=== PATIENT | male | born 1965 | race Caucasian/White ===

== ENCOUNTER → 2020-05-13 | Outpatient (CLI) | payer BC ==
[~2020-05-13] MED LIST: PRIL20TA2 PO
== END ==
LOC: M LABSMTC 12:00
PROVIDERS: ATTEND Anesthesiology
DX: Z11.59 Encounter for screening for other viral diseases (principal)
CPT/HCPCS: C9803; U0003

== ENCOUNTER 2020-05-16 06:35 | Day surgery (SDC) | payer BC ==
[~2020-05-16] VITALS: Ht 170.2 cm; Wt 79.7 kg
[~2020-05-16 06:35] MED LIST changes: +LIDOCAINE 1% MDV 20ML VIAL SQ PRN; +LR 1,000 ML IV ONE
[2020-05-16] MEDS ORDERED: LR 1,000 ML IV ONE (07:00)
[2020-05-16] MEDS ORDERED: ceFAZolin SOD 2 GM in IV 1 EA IV ONE (07:00)
[2020-05-16] MEDS ORDERED: LIDOCAINE 1% MDV 20ML VIAL As Ordered ONE (07:14)
[2020-05-16] MEDS ORDERED: BUPIVACAINE HCL 0.25% 10ML VIAL As Ordered ONE (07:14)
[2020-05-16] MEDS ORDERED: SUGAMMADEX SODIUM 500 MG/5 ML VIAL (BRIDION) As Ordered ONE (07:51)
[2020-05-16] MEDS ORDERED: ONDANSETRON 4MG/2ML VIAL As Ordered ONE (07:51)
[2020-05-16] MEDS ORDERED: propofoL 200 MG/20 ML VIAL As Ordered ONE (07:51)
[2020-05-16] MEDS ORDERED: METOCLOPRAMIDE INJ 10MG/2ML VIAL (J2765 PER 1) As Ordered ONE (07:51)
[2020-05-16] MEDS ORDERED: MIDAZOLAM INJ 2MG/2ML VIAL (J2250 PER 1MG) As Ordered ONE (07:51)
[2020-05-16] MEDS ORDERED: dexameTHASONE 4 MG/ML 1ML VIAL (J1100 PER 1MG) As Ordered ONE (07:51)
[2020-05-16] MEDS ORDERED: LIDOCAINE 2% 100MG/5ML SDV (FOR ANES.) As Ordered ONE (07:51)
[2020-05-16] MEDS ORDERED: fentaNYL 250 MCG/5 ML INJECTION (J3010) As Ordered ONE (07:51)
[2020-05-16] MEDS ORDERED: ROCURONIUM BROMIDE 50 MG/5 ML VIAL As Ordered ONE ×2 (07:51→08:12)
[2020-05-16] MEDS ORDERED: ACETAMINOPHEN 1000MG 100ML IV BTL (OFIRMEV) (J0131 PER 10MG) As Ordered ONE (07:59)
[2020-05-16] MEDS ORDERED: KETOROLAC 60MG 2ML VIAL As Ordered ONE (07:59)
[2020-05-16] MEDS ORDERED: SEVOFLURANE INHAL SOLN 250 ML BTL As Ordered ONE (08:04)
[2020-05-16] MEDS ORDERED: MEPERIDINE INJ 25 MG/ML VIAL (J2175) As Ordered ONE (09:45)
[2020-05-16] MEDS: MEPERIDINE INJ 25 MG/ML VIAL (J2175) IV PRN ×2 (09:45→09:50)
[2020-05-16] MEDS ORDERED: LR 1,000 ML IV SCH (10:00)
[2020-05-16] MEDS ORDERED: KETOROLAC 30 MG/ML 1ML VIAL IV PRN (10:00)
[2020-05-16] MEDS ORDERED: ONDANSETRON 4MG/2ML VIAL IV PRN ×2 (10:00)
[2020-05-16] MEDS ORDERED: METOCLOPRAMIDE INJ 10MG/2ML VIAL (J2765 PER 1) IV PRN (10:00)
[2020-05-16] MEDS ORDERED: NORCO, ANEXSIA 5/325MG TABLET (HYDROcodone/ACETAMINOPHEN) PO PRN (10:00)
[2020-05-16] MEDS ORDERED: PERCOCET 5MG/325MG TAB PO PRN (10:00)
[2020-05-16] MEDS ORDERED: fentaNYL 100 MCG/2 ML INJECTION (J3010) IV PRN (10:00)
--- NOTE | 2020-05-16 10:15 | ROOPDOC ---
[facility] Report Of Operation Report of Operation DATE OF PROCEDURE: 05/16/20 PREPROCEDURE DIAGNOSES: Left inguinal hernia. POSTPROCEDURE DIAGNOSES: Left inguinal hernia primarily indirect to the small direct inguinal hernia. PROCEDURE: Robotic-assisted laparoscopic repair of left inguinal hernia (rTAPP). SURGEON: Michael Gill MD FLOWER ARRANGER: Elba Alejandro NP (assisted me with placement of ports, management of the robotic arms and instruments on the field what I was at the surgeon's console, insertion of the mesh, closure ports) ANESTHESIA: General anesthesia. ESTIMATED BLOOD LOSS: Approximately 20 mL. COMPLICATIONS: None. REMARKS: 54-year-old male with discomfort associated with a bulge in his left groin going down to his scrotum for the past 3 months PROCEDURE NOTE: Previous posterior mesh repair in the right with no signs of recurrence, moderate size opening to the indirect hernia space with a small direct hernia component on the left side, moderate size cord lipoma that was reduced into the preperitoneal space. The testicular vessels were surrounded with bulky fat. DESCRIPTION OF PROCEDURE: . Patient received 2 g of Ancef IV preoperatively for wound prophylaxis. Patient was brought to the operating room, placed supine on the operating table. Compression boots placed in both lower extremities for DVT prophylaxis. After adequate general anesthesia started, he was placed on a lithotomy position. A lr catheter placed without difficulty. His abdomen and groin/pelvic area then prepped and draped in the usual sterile fashion.We paused for a surgical timeout using both pre-incision safety checklist to verify correct patient, procedure site and additional clinical information prior to beginning the procedure Entry to the abdomen done through a small incision roughly 5 cms the umbilical skin cleft. He had a prior umbilical hernia repair and is not aware if he had mesh placed or not. A Veress needle is inserted on a controlled fashion. CO2 insufflation started to pressure 15 mmHg. Using the same incision an 8 mm robotic trochar was then placed under direct vision of a 5 mm laparoscope. The insertion site was inspected for injury and none was found. Patient was then positioned on a 8 Trendelenburg position for adequate view of the hernia defect. 2 working ports placed to the right and left of the umbilical port roughly 8 cms away from the camera port along the same line. The Sweeper[employer] robot tower was then positioned in place and the trochars docked onto the robot. I t hen unscrubbed and took control of the camera and the robotic instruments at the surgeon's console. I used a 0 8 mm robotic camera with a forceps bipolar forceps, the left hand connected to bipolar cautery and robotic scissors connected to a monopolar cautery which was later exchanged for suction as well as a carol-suture cut . Operative Findings: On diagnostic laparoscopy, the right groin area was inspected and there is evidence of a posteriorly placed mesh. No evidence of recurrence. The umbilicus itself was covered with bulky fat and I could not assess if there was a mesh failure or not so there was no recurrence of the hernia. The umbilical ligaments are not well-defined. He is a moderate-sized opening of the internal ring consistent with an indirect hernia with a small direct hernia component. There was nothing passing through the hernia defect. The peritoneum is thinned out. The peritoneum was opened up about 5 cm above the superior edge of the fascial defect of the inguinal hernia starting medially and proceeding laterally towards the level of the anterior superior iliac spine. I stayed mainly in the preperitoneal space leaving the parietal covering of the transversalis to the inferior epigastric artery intact. I then proceeded medially to the space of Retzius opening up the space with blunt dissection and bringing down the urinary bladder. The pubic tubercle was exposed past the symphysis pubis medially and roughly about 2-3 cm inferiorly. I then proceeded laterally at the space of Bogros again staying at the preperitoneal space and leaving the parietal covering of the abdominal wall muscles to prevent injury to the groin nerves traversing the area. Once both spaces were developed, I then receded reducing the hernia sac. This is quite redundant. The sac was dissected free of the vas deferens and testicular vessels with minimal manipulation of the vas deferens and testicular vessels. Once this was reduced to the preperitoneal space I continued dissecting this inferiorly and I parietal advised the vas deferens for short segment to make sure the peritoneum is free from the transversalis fascia. He has a moderate sized and bulky cord lipoma which was reduced into the preperitoneal space. The testicular vessels itself that are wrapped with fatty tissue and a voided dissecting this to prevent bleeding. The cord lipoma was reduced further away to the preperitoneal space. There was some bleeding from the vessel in the preperitoneum that to cauterize. The cord lipoma was included to the peritoneal flap. I then made sure the leftover attachments of the cord lipoma are well dissected did not interfere with the peritoneal flap when the fl ap is being closed. I used a ruler to measure [employer] and have an adequate space for a 15 x 10 cm mesh. After fully dissecting the preperitoneal space, we checked for adequate hemostasis. I chose a 15 x 10 cm Parietex Pro X Ray Nurse self fixating mesh. This was folded with the center of the mesh marked for positioning. This was then delivered intra- abdominally through one of the trochars. In a controlled fashion this was positioned into the preperitoneal space with the medial side past the symphysis pubis, the inferior side roughly about 2 cm below the pubic tubercle towards the pubic tubercle. The mesh is centered to the indirect inguinal hernia defect and has adequate coverage of both the direct hernia and the femoral space. The pocket was enlarged laterally to accommodate the mesh. This was carefully pressed onto the abdominal wall and I made sure that it was flattened up. After careful placement of the mesh, the peritoneal flap was then closed with a running suture of 3-0V LOC suture. As the hernia sac was long and redundant I incorporated the hernia sac into the closure of the peritoneum. I then surveyed the abdomen and pelvis for any signs of injury. The instruments were removed, the robot undocked. The abdomen was deflated. All ports were removed. The skin incisions were closed with 4-0 Monocryl in subcuticular fashion. The incisions were covered with Dermabond. The port sites were again infiltrated with local anesthesia. An ilioinguinal nerve block was also performed. Patient was promptly awakened, extubated and brought to the recovery room stable Count of sponges and instruments were verified correct. MICHAEL GILL MD May 16, 2020 10:15
[2020-05-16] MEDS ORDERED: PERCOCET 5MG/325MG TAB As Ordered ONE (11:05)
[2020-05-16 11:20] VITALS: BP 153/89
== END 2020-05-16 11:40 | disposition home or self-care (01) ==
LOC: M SDC 06:35
PROVIDERS: ATTEND Surgery
DX: K40.90 Unilateral inguinal hernia, without obstruction or gangrene, not specified as recurrent (principal); K21.9 Gastro-esophageal reflux disease without esophagitis; Z79.899 Other long term (current) drug therapy
CPT/HCPCS: 49650; C1781; J0131; J0690; J1100; J1885; J2175; J2250; J2405; J2765; J3010

== ENCOUNTER → 2020-06-02 | Outpatient (CLI) | payer BC ==
[~2020-06-02] MED LIST changes: -LIDOCAINE 1% MDV 20ML VIAL SQ PRN; -LR 1,000 ML IV ONE
== END ==
LOC: M LABSMTC 11:05
PROVIDERS: ATTEND Orthopaedic Surgery
DX: Z03.818 Encounter for observation for suspected exposure to other biological agents ruled out (principal); Z11.59 Encounter for screening for other viral diseases